=== PATIENT | female | born 1940 | race Caucasian/White ===

== ENCOUNTER 2019-04-11 17:54 | Emergency (ER) | payer MEDICARE, OTHER ==
[2019-04-11 18:36] VITALS: BP 177/70
--- NOTE | 2019-04-11 19:47 | UC ---
Skin Complaint HPI - HPI Summary HPI Summary: 78-year-old female presents for tick bite to her right upper back. States her discovered the tick this evening and attempted to remove however they are concerned there may be a retained piece of the tick in the skin. She is unsure how long the tick was attached or if it was engorged. Denies fever, chills, rash, flulike illness, myalgias, joint pain or swelling. - History of Current Complaint Chief Complaint: UCSkin Time Seen by Provider: 04/11/19 19:37 Stated Complaint: TICK Hx Obtained From: Patient Pain Intensity: 0 - Allergy/Home Medications Allergies/Adverse Reactions: Allergies Allergy/AdvReac Type Severity Reaction Status Date / Time Penicillins Allergy Rash Verified 04/11/19 18:36 Home Medications: Home Medications sulfaSALAzine TAB* [Azulfidine TAB*] 1,000 mg PO BID 04/11/19 [History Confirmed 04/11/19] PMH/Surg Hx/FS Hx/Imm Hx - Additional Past Medical History Additional PMH: RA Endocrine History: Thyroid Disease Other History Of: Negative For: Anticoagulant Therapy - Surgical History Surgical History: Yes Surgery Procedure, Year, and Place: c-sections x 3, hysterectomy,. Retina surgery - LASER - (NO OPEN PROCEDURES PER EYE WAS NEVER OPENED UP),. cataract surgery,appendectomy,tonsilectomy - Family History Known Family History: Positive: Cardiac Disease, Respiratory Disease, Other - alzheimers - Social History Occupation: Retired Lives: With Family Alcohol Use: Rare Substance Use Type: None Smoking Status (MU): Former Smoker - Immunization History Most Recent Tetanus Shot: Within 10 years Review of Systems All Other Systems Reviewed And Are Negative: Yes Constitutional: Negative: Fever, Chills Skin: Positive: Other - See HPI Respiratory: Positive: Negative Cardiovascular: Positive: Negative Gastrointestinal: Positive: Negative Genitourinary: Positive: Negative Musculoskeletal: Negative: Arthralgia, Myalgia Neurological: Positive: Negative Is Patient Immunocompromised?: No Physical Exam - Summary Physical Exam Summary: GENERAL APPEARANCE: Well developed, well nourished, alert and cooperative, and appears to be in no acute distress. CARDIAC: Normal S1 and S2. No S3, S4 or murmurs. Rhythm is regular. There is no peripheral edema, cyanosis or pallor. Extremities are warm and well perfused. Capillary refill is less than 2 seconds. Peripheral pulses intact. LUNGS: Clear to auscultation without rales, rhonchi, wheezing or diminished breath sounds. ABDOMEN: Positive bowel sounds. Soft, nondistended, nontender. No guarding or rebound. No masses or hepatosplenomegally. MUSKULOSKELETAL: ROM intact to all extremities. No joint erythema or tenderness. Normal muscular development. Normal gait. SKIN: Skin normal color, texture and turgor. Circular area of excoriation < 1 cm in diameter with a retained jaw part centrally. There is erythema that extends approximately 3-4 cm from the margins of excoriation with mild induration and edema. Triage Information Reviewed: Yes Vital Signs: Initial Vital Signs Temp 98.3 F 04/11/19 18: Pulse 74 04/11/19 18: Resp 18 04/11/19 18: BP 177/70 04/11/19 18: Pulse Ox 98 04/11/19 18:31 Vital Signs Reviewed: Yes Course/Dx - Course Course Of Treatment: 78-year-old female presents for tick bite to her right upper back. States her discovered the tick this evening and attempted to remove however they are concerned there may be a retained piece of the tick in the skin. She is unsure how long the tick was attached or if it was engorged. Denies fever, chills, rash, flulike illness, myalgias, joint pain or swelling. Afebrile. hypertensive otherwise VSS. Patient had a circular area of excoriation < 1 cm in diameter with a retained jaw part centrally. There is erythema that extends approximately 3-4 cm from the margins of excoriation with mild induration and edema consistent with cellulitis secondary to the bite. I did attmept to remove the retained job apart unsuccessfully using splinter forceps. I discussed with the patient that having the retained jaw part does not increase her risk for Lyme disease and that it will eventually work its way out on its own and patient is comfortable with allowing that to happen. I discussed with the patient that I am concerned about the area of erythema around the bite site and suspect that she may have some cellulitis starting. I will place her on doxycycline 100 mg twice a day 7 days which is more than adequate for Lyme prophylaxis. The area of erythema was marked with a skin pen. She is to follow -up with her primary care provider in 3 days for a recheck of her symptoms. Anticipatory guidance and warning symptoms were reviewed with the patient. Verbalizes understanding and agrees with plan of care. - Differential Diagnoses - Skin Complaint Differential Diagnoses: Cellulitis, Local Allergic Reaction, Tick Born Illness - Diagnoses Provider Diagnosis: Infected tick bite of upper back excluding scapular region Discharge ED - Sign-Out/Discharge Documenting (check all that apply): Patient Departure All imaging exams completed and their final reports reviewed: No Studies - Discharge Plan Condition: Stable Disposition: HOME Prescriptions: Doxycycline Hyclate 100 mg PO BID #14 tablet Patient Education Materials: Tick Bite (ED) Referrals: Leo Gardner MD [Primary Care Provider] - 3 Days Additional Instructions: You have a retained jaw part from the tick still embedded in the skin that we were not able to remove however having a retained jaw part does not increase your risk for keysha Lyme disease and it will eventually works itself out on its own. The tick bite does appear to have become infected (cellulitis) therefore we will start you on an antibiotic to treat the infection. Take doxycycline 100 mg 1 tablet twice a day for 7 days. Do not drink milk, eat milk products, or takes supplements containing calcium for at least 2 hours before after taking this medication as the calcium can affect the absorption. This antibiotic will also make you more sensitive to the sunlight therefore it is recommended that you try to avoid sun exposure while taking. If you must be outdoors take appropriate precautions including sunscreen, long sleeves, and hat. There is no benefit of blood testing for Lyme disease at the time of the tick bite because even people who become infected will not have a positive blood test until approximately two to six weeks after the tick bite. To try to avoid getting bitten by a tick, you can: * Wear shoes, long-sleeved shirts, and long pants when you go outside. Keep ticks away from your skin by tucking your pants into your socks. * Wear light colors so you can spot any ticks that get on your clothes. * Wear bug spray or cream that contains DEET. (Do not use DEET on babies younger than 2 months.) On your clothes and gear, you can use bug repellents that have a chemical called "permethrin." * Shower within 2 hours of being outdoors if you think you have been in an area where there are ticks. * Put dry clothes briefly (for about 4 minutes) in a dryer after being outdoors. * Check your clothes and body for ticks after being outdoors. Be sure to check your scalp, waist, armpits, groin, and backs of your knees. Check your children , too. After a tick bite, you will need to monitor for signs of Lyme disease over the next several weeks even if you have been given antibiotics to prevent the infection. Seek immediate medical attention if you develop a bullseye rash, fever, flu-like symptoms including headache, stiff neck, fatigue, muscle aches, joint pain or swelling. You should follow up with your primary care provider in 3 days for re- evaluation to make sure the infection is improving. - Billing Disposition and Condition Condition: STABLE Disposition: Home - Attestation Statements Provider Attestation: Per institutional requirements, I have reviewed the chart, however, I was not consulted specifically or made aware of this patient by the midlevel provider. I did not personally evaluate, interact with , or disposition this patient.
== END 2019-04-11 20:00 | disposition home or self-care (01) ==
LOC: UCEAST 17:54
DX: S20.461A Insect bite (nonvenomous) of right back wall of thorax, initial encounter (principal); L08.9 Local infection of the skin and subcutaneous tissue, unspecified; M06.9 Rheumatoid arthritis, unspecified; Z87.891 Personal history of nicotine dependence; Z88.0 Allergy status to penicillin; Z79.899 Other long term (current) drug therapy; W57.XXXA Bitten or stung by nonvenomous insect and other nonvenomous arthropods, initial encounter; Y92.9 Unspecified place or not applicable
CPT/HCPCS: 99212; G0463